=== PATIENT | male | born 1945 | race Caucasian/White ===

== ENCOUNTER 2022-08-11 01:01 | Inpatient (IN) | payer MEDICARE, OTHER ==
[~2022-08-11] VITALS: Ht 218.4 cm; Wt 78.0 kg
[2022-08-11] MEDS ORDERED: NOREPINEPHRINE 8 MG/D5%-WATER 250 ML IV PRN (01:45)
[2022-08-11 01:58] LABS: BASOPHILS % (AUTO) 1.5 % (0.0-2.0); EOSINOPHILS % (AUTO) 5.7 % (1.0-6.0); HEMATOCRIT 27.2 % (41-53); HEMOGLOBIN 8.4 g/dL (13.5-17.5); LYMPHOCYTES # (AUTO) 0.7 K/uL (1.0-4.8); LYMPHOCYTES % (AUTO) 18.4 % (22.0-44.0); MEAN CORPUSCULAR HEMOGLOBIN 29.4 pg (26.0-34.0); MEAN CORPUSCULAR HGB CONC 30.8 G/dL (31.0-37.0); MEAN CORPUSCULAR VOLUME 96 fL (80-100); MONOCYTES # (AUTO) 0.7 K/uL (0.1-1.0); MONOCYTES % (AUTO) 16.8 % (2.0-9.0); NEUTROPHILS # (AUTO) 2.3 K/uL (1.8-7.7); NEUTROPHILS % (AUTO) 57.6 % (40.0-70.0); PLATELET COUNT (AUTO) 90 K/uL (150-450); RED BLOOD CELL COUNT(AUTO) 2.84 MIL/uL (4.50-5.90)
[2022-08-11] MEDS ORDERED: METO25XL PO (01:59)
[2022-08-11] MEDS ORDERED: MIRT7.5T11 PO (01:59)
[2022-08-11] MEDS ORDERED: [UNRECOGNIZED DRUG - CODE] PO (02:00)
[2022-08-11] MEDS ORDERED: PARO-149 PO (02:08)
[2022-08-11] MEDS ORDERED: TAMS-13 PO (02:08)
[2022-08-11] MEDS ORDERED: THIA100T80 PO (02:08)
[2022-08-11] MEDS ORDERED: DICL100G51 TP (02:08)
[2022-08-11] MEDS ORDERED: MELA5TAB21 PO (02:08)
[2022-08-11] MEDS ORDERED: FLUT16SP NASAL (02:08)
[2022-08-11] MEDS ORDERED: NYST30CR9 TP (02:08)
[2022-08-11] MEDS ORDERED: FOLI-130 PO (02:08)
[2022-08-11] MEDS ORDERED: WARF2.5T38 PO (02:08)
[2022-08-11] MEDS ORDERED: PANT-31 PO (02:08)
[2022-08-11 02:14] LABS: ALBUMIN 1.5 g/dL (3.4-5.0); BILIRUBIN,TOTAL 0.8 mg/dL (0.1-1.0); CALCIUM, TOTAL 9.5 mg/dL (8.8-10.5); CREATININE 1.97 mg/dL (0.60-1.30); POTASSIUM 3.4 mmol/L (3.5-5.1); TOTAL PROTEIN, SERUM 6.1 g/dL (6.4-8.2)
[2022-08-11 02:27] LABS: PROTHROMBIN TIME 87.4 SEC (9.4-11.6)
[2022-08-11 02:29] LABS: INR 9.1 (0.9-1.1)
[2022-08-11] MEDS ORDERED: DEXTROSE 50%-WATER 25 GM/50 ML SYRINGE IVP ONE ×2 (03:15→05:30)
[2022-08-11 04:36] LABS: GLUCOSE,POINT OF CARE 80 MG/DL (70-110)
[2022-08-11 04:44] LABS: COVID AG,FIA SOURCE NASAL SWAB
[2022-08-11] MEDS ORDERED: ONDANSETRON HCL 4 MG/2 ML VIAL IVP PRN ×2 (05:45→08:15)
[2022-08-11] MEDS ORDERED: 0.9% SODIUM CHLORIDE 10 ML SYRINGE IVP PRN (05:45)
[2022-08-11] MEDS ORDERED: ACETAMINOPHEN 325 MG TABLET PO PRN ×2 (05:45→08:15)
[2022-08-11 08:01] LABS: GLUCOSE,POINT OF CARE 78 MG/DL (70-110)
[2022-08-11] MEDS ORDERED: BISACODYL 10 MG RECTAL RECTAL SUPPOSITORY PR PRN (08:15)
[2022-08-11] MEDS ORDERED: INSULIN LISPRO 100 UNITS/ML SQ PRN (08:15)
[2022-08-11] MEDS: DEXTROSE 50%-WATER 25 GM/50 ML SYRINGE IVP PRN ×3 (08:52→17:38)
[2022-08-11 09:06] LABS: GLUCOMETER DEV NAME(LOC) ERT.5; GLUCOSE,POINT OF CARE 71 MG/DL (70-110)
[2022-08-11 10:01] LABS: GLUCOMETER DEV NAME(LOC) ERT.5; GLUCOSE,POINT OF CARE 114 MG/DL (70-110)
[2022-08-11 12:31] LABS: GLUCOMETER DEV NAME(LOC) ERT.5; GLUCOSE,POINT OF CARE 69 MG/DL (70-110)
[2022-08-11 14:00] VITALS: BP 99/52
[2022-08-11 16:18] VITALS: BP 100/91
[2022-08-11 18:31] LABS: GLUCOMETER DEV NAME(LOC) 6N.2B; GLUCOSE,POINT OF CARE 64 MG/DL (70-110)
[2022-08-11 20:08] VITALS: BP 94/45
[2022-08-11] MEDS: [UNRECOGNIZED DRUG - REMARK] IV SCH ×3 (20:12)
[2022-08-11 21:51] LABS: GLUCOMETER DEV NAME(LOC) 6N.1; GLUCOSE,POINT OF CARE 74 MG/DL (70-110)
[2022-08-12 04:35] VITALS: BP 90/63
[2022-08-12 06:36] LABS: GLUCOMETER DEV NAME(LOC) 6N.2B; GLUCOSE,POINT OF CARE 74 MG/DL (70-110)
[2022-08-12 06:41] LABS: BASOPHILS % (AUTO) 0.8 % (0.0-2.0); EOSINOPHILS % (AUTO) 6.3 % (1.0-6.0); HEMATOCRIT 28.3 % (41-53); LYMPHOCYTES # (AUTO) 0.9 K/uL (1.0-4.8); LYMPHOCYTES % (AUTO) 18.5 % (22.0-44.0); MEAN CORPUSCULAR HEMOGLOBIN 30.2 pg (26.0-34.0); MEAN CORPUSCULAR VOLUME 95 fL (80-100); MONOCYTES # (AUTO) 0.8 K/uL (0.1-1.0); MONOCYTES % (AUTO) 17.1 % (2.0-9.0); NEUTROPHILS # (AUTO) 2.7 K/uL (1.8-7.7); NEUTROPHILS % (AUTO) 57.3 % (40.0-70.0); PLATELET COUNT (AUTO) 114 K/uL (150-450); RED CELL DISTRIBUTION WIDTH 20.6 % (11.5-14.5)
[2022-08-12 07:09] LABS: ALBUMIN 1.5 g/dL (3.4-5.0); BILIRUBIN,TOTAL 0.8 mg/dL (0.1-1.0); CALCIUM, TOTAL 9.6 mg/dL (8.8-10.5); CREATININE 2.5 mg/dL (0.60-1.30); PHOSPHORUS 2.5 mg/dL (2.5-4.9); POTASSIUM 3.3 mmol/L (3.5-5.1); THYROID STIMULATING HORMONE 30.88 uIU/mL (0.36-3.74); TOTAL PROTEIN, SERUM 6.2 g/dL (6.4-8.2)
[2022-08-12 07:14] LABS: PROTHROMBIN TIME 75.6 SEC (9.4-11.6)
[2022-08-12 07:21] LABS: INR 7.8 (0.9-1.1)
[2022-08-12 07:26] LABS: % IRON SATURATION 47.9 % (30-44)
[2022-08-12 07:59] VITALS: BP 93/60
[2022-08-12] MEDS ORDERED: *CLINICAL-WARFARIN SODIUM DOSING CLINICAL ONE (09:15)
[2022-08-12] MEDS ORDERED: WARFARIN SODIUM-INR 2.0-3.0-RX DOSING PER PROTOCOL PO PRN (09:45)
[2022-08-12] MEDS ORDERED: LEVOTHYROXINE SODIUM 75 MCG TABLET PO SCH (13:00)
[2022-08-12] MEDS: POTASSIUM CHL 10 MEQ/WATER 50 ML IV SCH ×3 (13:21→22:16)
[2022-08-12] MEDS: [UNRECOGNIZED DRUG - REMARK] IV SCH ×3 (13:22)
[2022-08-12] MEDS ORDERED: LEVOTHYROXINE SODIUM 100 MCG VIAL IVP SCH (14:00)
[2022-08-12 15:01] LABS: GLUCOMETER DEV NAME(LOC) 6N.2B; GLUCOSE,POINT OF CARE 70 MG/DL (70-110)
[2022-08-12] MEDS ORDERED: SODIUM CHLORIDE 0.9% 500 ML IV ONE (15:36)
[2022-08-12 19:36] VITALS: BP 145/99
[2022-08-12 19:46] LABS: GLUCOMETER DEV NAME(LOC) 6N.2B; GLUCOSE,POINT OF CARE 71 MG/DL (70-110)
[2022-08-12 21:26] LABS: GLUCOMETER DEV NAME(LOC) 6N.1; GLUCOSE,POINT OF CARE 80 MG/DL (70-110)
[2022-08-13 04:45] VITALS: BP 65/33
[2022-08-13] MEDS: [UNRECOGNIZED DRUG - REMARK] IV SCH ×3 (05:37)
[2022-08-13 06:46] LABS: BASOPHILS % (AUTO) 0.5 % (0.0-2.0); EOSINOPHILS % (AUTO) 0.2 % (1.0-6.0); HEMATOCRIT 31.9 % (41-53); HEMOGLOBIN 9.5 g/dL (13.5-17.5); LYMPHOCYTES # (AUTO) 0.9 K/uL (1.0-4.8); LYMPHOCYTES % (AUTO) 9.9 % (22.0-44.0); MEAN CORPUSCULAR HEMOGLOBIN 29.5 pg (26.0-34.0); MEAN CORPUSCULAR HGB CONC 29.8 G/dL (31.0-37.0); MEAN CORPUSCULAR VOLUME 99 fL (80-100); MONOCYTES # (AUTO) 1.3 K/uL (0.1-1.0); MONOCYTES % (AUTO) 14.1 % (2.0-9.0); NEUTROPHILS % (AUTO) 75.3 % (40.0-70.0); PLATELET COUNT (AUTO) 146 K/uL (150-450); RED BLOOD CELL COUNT(AUTO) 3.23 MIL/uL (4.50-5.90); RED CELL DISTRIBUTION WIDTH 21.8 % (11.5-14.5)
[2022-08-13 06:55] LABS: PROTHROMBIN TIME 49.2 SEC (9.4-11.6)
[2022-08-13 07:02] LABS: CALCIUM, TOTAL 9.8 mg/dL (8.8-10.5); CREATININE 3.42 mg/dL (0.60-1.30)
[2022-08-13 08:02] LABS: GLUCOMETER DEV NAME(LOC) 6N.1; GLUCOSE,POINT OF CARE 101 MG/DL (70-110)
[2022-08-13 08:21] VITALS: BP 91/46
[2022-08-13] MEDS ORDERED: EPOETIN ALFA 10,000 UNITS/ML 2 ML VIAL SQ SCH (09:00)
[2022-08-13] MEDS ORDERED: FUROSEMIDE 20 MG/2 ML VIAL IVP SCH (15:15)
[2022-08-13 15:27] VITALS: BP 79/41
[2022-08-13 18:07] LABS: GLUCOMETER DEV NAME(LOC) 6N.1; GLUCOSE,POINT OF CARE 79 MG/DL (70-110)
== END 2022-08-13 19:55 | DRG 682 ==
LOC: EMS 01:03 → 6S 13:17
PROVIDERS: ADMIT Internal Medicine; ATTEND Internal Medicine
DX: N17.9 Acute kidney failure, unspecified (principal); E43 Unspecified severe protein-calorie malnutrition; I48.20 Chronic atrial fibrillation, unspecified; D61.818 Other pancytopenia; I13.2 Hypertensive heart and chronic kidney disease with heart failure and with stage 5 chronic kidney disease, or end stage renal disease; R64 Cachexia; D68.9 Coagulation defect, unspecified; Z68.1 Body mass index [BMI] 19.9 or less, adult; D68.8 Other specified coagulation defects; N18.6 End stage renal disease; D63.1 Anemia in chronic kidney disease; E11.22 Type 2 diabetes mellitus with diabetic chronic kidney disease; E11.319 Type 2 diabetes mellitus with unspecified diabetic retinopathy without macular edema; Z66 Do not resuscitate; E11.40 Type 2 diabetes mellitus with diabetic neuropathy, unspecified; E11.649 Type 2 diabetes mellitus with hypoglycemia without coma; R62.7 Adult failure to thrive; I25.10 Atherosclerotic heart disease of native coronary artery without angina pectoris; F02.80 Dementia in other diseases classified elsewhere, unspecified severity, without behavioral disturbance, psychotic disturbance, mood disturbance, and anxiety; E86.0 Dehydration; G31.83 Neurocognitive disorder with Lewy bodies; I50.9 Heart failure, unspecified; Z87.442 Personal history of urinary calculi; Z91.81 History of falling; Z95.2 Presence of prosthetic heart valve; K21.9 Gastro-esophageal reflux disease without esophagitis; Z86.14 Personal history of Methicillin resistant Staphylococcus aureus infection; Z98.1 Arthrodesis status; M89.8X9 Other specified disorders of bone, unspecified site; Z20.822 Contact with and (suspected) exposure to COVID-19; T45.515A Adverse effect of anticoagulants, initial encounter; E87.6 Hypokalemia; Z51.5 Encounter for palliative care
CPT/HCPCS: 70450; 80048; 80053; 82271; 82607; 82728; 82746; 82962; 83540; 83550; 83970; 84100; 84443; 85025; 85610; 85730; 86850; 86900; 86901; 92526; 92610; 96365; 96375; 96376; 99291; J0885; J1940; J3480; J3490; J7040; Q9967